=== PATIENT | female | born 1940 | race Caucasian/White ===

== ENCOUNTER → 2017-07-13 09:42 | Outpatient (CLI) | payer MEDICARE, MEDICAID, SELFPAY ==
[2017-07-13 11:09] LABS: Hematocrit 33.5 % (37-47); Hemoglobin 10.8 g/dl (12.0-15.0); Mean Corp Hgb Conc 32.2 g/gl (32-36); Mean Corpuscular Hgb 29.5 pg (27.0-32.0); Mean Corpuscular Volume 91.5 fL (81-99); Mean Platelet Vol. 9.9 fl (6.2-12.0); Platelet Count 200 K/mm3 (150-450); RBC Distribution Width CV 15.1 % (11.6-14.6); RBC Distribution Width SD 49.2 fl (35.1-43.9); Red Blood Count 3.66 M/mm3 (4.2-5.4); White Blood Count 6.9 K/mm3 (4.4-11.0)
[2017-07-13 11:12] LABS: Scan Indicated on CBC? Y/N NO
[2017-07-13 11:18] LABS: Color, Urine Yellow (Yellow); Glucose, Dipstick Normal (Normal); Ketone-Dipstick Negative (Negative); Leukocyte Esterase-Dipstick 500 /ul (Negative); Nitrite-Dipstick Positive (Negative); Occult Blood-Urine 10 /ul (Negative); Protein-Dipstick 15 mg/dl (Negative); Urine Bilirubin Dipstick Negative (Negative); Urine Clarity Sl. Cloudy (Clear); Urine Urobilinogen Normal (Normal)
[2017-07-13 11:27] LABS: Microalbumin,Random Urine 30.6 mg/L (NO RANGE EST.); Microalbumin:Creatinine Ratio 30.9 mg/g CRE (<30 mg/g CRE); Protein, Urine (Random) 17.9 mg/dL (<11.9); Protein:Creat Ratio 181 mg/g CRE (0-200)
[2017-07-13 11:48] LABS: PTHIN 66.7 pg/mL (18.4-80.1); Vitamin D,25 Hydroxy 32.3 ng/mL (29.95-100.01)
[2017-07-13 11:58] LABS: Albumin, Serum 3.2 g/dL (3.2-5.0); BUN 24 mg/dL (7-18); BUN/Creat Ratio 18.2 RATIO (10-20); Calcium,Total 8.7 mg/dL (8.5-10.1); Chloride 107 mmol/L (98-107); Creatinine, Serum 1.32 mg/dL (0.55-1.02); EST Glomerular Filtration Rate 42 mL/min (>60); Est Glom Filt Rate - Afr Amer 50 mL/min (>60); Ferritin 146 ng/mL (8-252); Glucose 90 mg/dL (74-106); Iron 36 ug/dL (50-170); Iron Binding Capacity,Total 235 ug/dL (250-450); Phosphorus 3.2 mg/dL (2.5-4.9); Sodium Level 139 mmol/L (136-145)
== END ==
PROVIDERS: Family Provider Internal Medicine; PCP Internal Medicine; Visit Provider Internal Medicine Nephrology
DX: N18.3 Chronic kidney disease, stage 3 (moderate) (principal); D64.9 Anemia, unspecified; E21.0 Primary hyperparathyroidism
CPT/HCPCS: 80069; 81002; 82043; 82306; 82570; 82728; 83540; 83550; 83970; 84156; 85027

== ENCOUNTER → 2020-03-15 09:33 | Outpatient (CLI) | payer MEDICARE, MEDICAID, SELFPAY ==
--- NOTE | 2020-03-15 09:50 | RAD_ITS ---
STUDY: AIR-CONTRAST UPPER GI SERIES. REASON FOR EXAM: Female, 79 years old. WEIGHT LOSS, EARLY SATIETY, GERD -- 55 FLUORO SEC, 36.94mGy, 25 FLUORO IMAGES FLUOROSCOPY TIME (if supplied): ( 55 seconds. ) minutes/seconds. 25 fluoroscopic images. TECHNIQUE: The patient ingested barium. Multiple images of esophagus, stomach and duodenum were obtained. COMPARISON: None. FINDINGS: Weblike narrowing at the gastroesophageal junction. No evidence of gastroesophageal reflux. The remainder of the stomach and duodenum are unremarkable. 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 Correlation with endoscopy is recommended for further evaluation. Electronically Signed: Sloan Padilla, at 13:35 EST , Service support ,
== END ==
PROVIDERS: PCP Internal Medicine; Referring Provider Nurse Practitioner Adult Health; Visit Provider Nurse Practitioner Adult Health
DX: R63.4 Abnormal weight loss (principal); R68.81 Early satiety; K21.00 Gastro-esophageal reflux disease with esophagitis, without bleeding
CPT/HCPCS: 74246

== ENCOUNTER 2023-02-24 16:04 | Observation (INO) | payer MEDICARE, MEDICAID, SELFPAY ==
[2023-02-24 16:05] VITALS: BP 129/79; PULSE 70; RESP 16; TEMP 36.1; O2SAT 100; BMI 24.9
--- NOTE | 2023-02-24 16:20 | EDS_ITS ---
HPI History of Present Illness Chief Complaint: Syncope Informant: patient Onset/Context/Timing Onset: Today Context: Sudden Onset Timing: Intermittent Quality: Weakness, loss of consciousness Location: Generalized Worsened by: Nothing Relieved by: Nothing Narrative Narrative: Patient presents with a syncopal episode that occurred today. Patient states she was walking in the kitchen when she passed out. Patient remembers walking. Patient remembers waking up on the floor. Patient does not know how long she was out for. Patient admits to some nausea and vomiting. Patient denies any chest pain or shortness of breath. Patient denies any palpitations. Patient denies any recent fevers or chills. Patient states nothing made her symptoms better nothing made them worse. [facility] Medical History (Updated 02/24/23 @ 19:[address] Byron Benton DO) Hypertension Allergy/AdvReac Type Severity Reaction Status Date / Time No Known Allergies Allergy Verified 02/24/23 16:05 Surgical History (Updated 02/24/23 @ 16:[address] Byron Benton DO) Hx of cataract surgery Social History Smoking Status: Former smoker ROS ROS ED Constitutional Constitutional ED: Denies chills or fever(s) Eyes Eyes: Denies blurry vision or change in vision ENT ENT ED: Denies rhinorrhea or sore throat Cardiovascular Cardiovascular: Denies chest pain or palpitations Respiratory/Chest Respiratory/Chest: Denies cough or dyspnea Gastrointestinal Gastrointestinal: Reports nausea and vomiting Genitourinary Genitourinary ED: Denies dysuria or hematuria Musculoskeletal Musculoskeletal: Denies back pain or neck pain Integumentary Denies abscess or rash Neurologic Neurologic: Denies headache(s) or weakness Allergic/Immunologic Allergic/Immunologic ED: Denies mouth swelling or urticaria EXAM Physical Exam Const Vital Signs: 02/24/23 16:05 02/24/23 16:05 Temperature 97 F L Temperature Source Temporal Pulse Rate 70 Respiratory Rate 16 Respiratory Effort Normal Respiratory Pattern Normal Blood Pressure 129/79 H Blood Pressure Mean 95 Pulse Ox 100 Oxygen Delivery Method Room Air Positive well nourished and well developed General Appearance ED: well developed and NAD HEENT Reports moist mucous membranes Neck supple and no JVD Chest Wall inspection of chest normal and palpation of chest normal Resp normal respiratory effort and clear to auscultation bilaterally Cardio regular rate and regular rhythm GI non-tender and non-distended Palpation: soft Extremity normal to inspection General Extremety ED: Negative for edema or tenderness General Extremity: Negative for edema Neuro oriented x3, CN's II-XII intact bilaterally and no sensory deficits noted Sensorium / Orientation: alert Motor Exam: strength 5/5 throughout Psych mental status grossly normal MDM MDM MDM Narrative Medical decision making narrative: Differential diagnosis includes cardiac dysrhythmia, cardiac ischemia, stroke, intracranial bleeding, electrolyte abnormality, pulmonary embolism, and anemia. CT scan of the brain will be obtained to assess for intracranial bleeding. EKG will be obtained to assess for cardiac dysrhythmia and cardiac ischemia. Chest x-ray will be obtained to assess for pneumonia and pneumothorax. CBC will be obtained to assess for leukocytosis and anemia. Basic metabolic profile will be obtained to assess for electrolyte abnormality and renal function. High- sensitivity troponin will be obtained to assess for cardiac ischemia. 2-hour repeat high-sensitivity troponin will be obtained to assess for ongoing cardiac ischemia. D-dimer will be obtained to assess for pulmonary embolism. Lab Data Attestation: I reviewed the patient's lab results. Lab results narrative: CBC was reviewed. There is a mild anemia with a hemoglobin of 11.4 hematocrit 34.2. Platelets were normal. Basic metabolic profile was reviewed. BUN was 40 and creatinine was 1.98. These were increased from previous results. High- sensitivity troponin was reviewed and was normal at 7. D-dimer was reviewed and was normal at less than 0.27. Urinalysis was reviewed. Leukocyte esterase was 100 with 5-10 white blood cells. There is no bacteria noted. 2-hour repeat high-sensitivity troponin was reviewed and was normal at 10. Labs: Laboratory Results - last 24 hr 02/24/23 02/24/23 02/24/23 16:42 18:40 18:52 WBC 9.0 RBC 3.67 L Hgb 11.4 L Hct 34.2 L MCV 93.2 MCH 31.1 MCHC 33.3 RDW Std Deviation 48.5 H RDW Coeff of Andreina 14.3 Plt Count 221 MPV 9.3 Immature Gran % (Auto) 0.600 Neut % (Auto) 55.6 Lymph % (Auto) 35.2 [place] % (Auto) 6.3 Eos % (Auto) 2.0 Baso % (Auto) 0.3 Absolute Neuts (auto) 5.0 Absolute Lymphs (auto) 3.15 Nucleated RBC % 0 D-Dimer Quant (PE/DVT) < 0.27 L Sodium 139 Potassium 3.8 Chloride 108 H Carbon Dioxide 26.0 Anion Gap 5 BUN 40 H Creatinine 1.98 H Estim Creat Clear Calc 17.33 Est GFR (MDRD) Af Amer 31 L Est GFR (MDRD) Non-Af 26 L BUN/Creatinine Ratio 20.2 H Glucose 153 H Calcium 9.9 Troponin I High Sens 7 10 Urine Color Yellow Urine Clarity Sl. Cloudy Urine pH 6.5 Ur Specific [place] 1.010 Urine Protein Negative Urine Glucose (UA) Normal Urine Ketones Negative Urine Occult Blood Negative Urine Nitrite Negative Urine Bilirubin Negative Urine Urobilinogen Normal Ur Leukocyte Esterase 100 H Urine RBC 0 SEEN Urine WBC 5-10 SEEN Ur Squamous Epith Cells 0-5 SEEN Amorphous Sediment 1+ URATE Urine Bacteria 0 SEEN Urine Mucus 0 SEEN Radiography Diagnostic Testing: Clinical Impression(s) from Imaging Studies Brain CT 02/24/23 16:29 IMPRESSION: Mild atrophy and periventricular white matter ischemic change. No acute intracranial hemorrhage Electronically Signed: Kwesi Kc MD at 17:37 EST , Chest X-Ray 02/24/23 16:45 IMPRESSION: No acute cardiopulmonary pathology Electronically Signed: Kwesi Kc MD at 17:03 EST , CT scan of the brain was obtained. There is no acute intracranial abnormality. There are chronic changes noted. This was interpreted by the radiologist and was also independently reviewed by myself. Portable 1 view chest x-ray was obtained. On my independent interpretation, lung argueta are clear. There is normal cardiac silhouette. Bony thorax is normal. There is no acute process noted. Radiologist also interpreted the x- ray and agrees. EKG Initial EKG: Attestation: I personally reviewed and interpreted this EKG as follows: Interpretation: Sinus Rhythm (64) and No Acute Injury Pattern Comments: EKG was obtained. On my independent interpretation, it showed a normal sinus rhythm with occasional PVC with a rate of 64. MN interval, QRS interval, and QTc intervals were all normal. [place] was normal. There are no acute ST or T wave changes. Prior EKG tracings: not available for review Prior: No Prior Treatment and Re-Evaluation :: Patient was given IV fluids. Patient was advised of her findings. I will discuss case with the hospitalist for admission for syncope workup. Patient and family understand and are agreeable with the plan. All questions were answered. Discharge Plan Triage Chief Complaint: Syncope ED Provider: Byron Benton Dx/Rx/DC Orders Clinical Impression: Syncope and collapse, Acute kidney injury superimposed on chronic kidney disease Primary Care Provider: Aspen Boland Referrals: Aspen Boland MD [Primary Care Provider] - Disposition Disposition: Acute Care [facility]
--- NOTE | 2023-02-24 16:29 | EKG12_ITS ---
Test Reason : Blood Pressure : / mmHG Vent. Rate : 064 BPM Atrial Rate : 064 BPM P-R Int : 134 ms QRS Dur : 082 ms QT Int : 408 ms P-R-T Axes : 052 053 052 degrees QTc Int : 420 ms Sinus rhythm with occasional Premature ventricular complexes Otherwise normal ECG Confirmed by MARY ELLEN BARRERA, ANTONELLA ([id number]), clinical editor JOSE MIGUEL VEGA ([id number]) on 02/26/2023 1:19:20 PM Referred By: Alba Confirmed By:ANTONELLA HYDE MD
--- NOTE | 2023-02-24 16:29 | CT_ITS ---
STUDY: CT BRAIN WITHOUT CONTRAST REASON FOR EXAM: Female, 82 years old. Head injury RADIATION DOSAGE (If Supplied By Facility): CTDIvol = ( 44.99 ) mGy, DLP = ( 762.36 ) mGycm TECHNIQUE: Transaxial CT imaging of the brain was performed without administration of intravenous contrast material. Individualized dose optimization techniques were used for this CT. COMPARISON: No relevant priors. FINDINGS: Normal soft tissue structures. Normal calvarium. Calcific plaquing of the cavernous carotid Mild atrophy and periventricular white matter ischemic changes. Normal basal ganglia and thalami. Normal brainstem. Normal cerebellum. There is no intracranial hemorrhage. There are no findings of an acute ischemic infarction. Normal visualized paranasal sinuses. Postsurgical changes of the orbits CT/Brain/Head without Contrast IMPRESSION: Mild atrophy and periventricular white matter ischemic change. No acute intracranial hemorrhage Electronically Signed: Kwesi Kc MD at 17:37 EST ,
--- NOTE | 2023-02-24 16:44 | NURSING ---
NO OLD EKGS
--- NOTE | 2023-02-24 16:45 | RAD_ITS ---
STUDY: X-RAY CHEST REASON FOR EXAM: Female, 82 years old. Syncope TECHNIQUE: AP portable COMPARISON: None. FINDINGS: The lungs are clear and expanded. There is no demonstrated pleural abnormality. Normal size heart. Normal mediastinum and zachary. Normal visualized pulmonary arteries. Normal visualized aortic arch and descending thoracic aorta. Dorsal spine demonstrates scoliosis and degenerative change Normal visualized ribs, clavicles. There are degenerative changes of both shoulders and findings suggestive of old trauma on the right and severe arthritic changes on the left There is no demonstrated abnormality of the visualized soft tissue structures of the upper abdomen. RAD/Chest 1 View (Portable) IMPRESSION: No acute cardiopulmonary pathology Electronically Signed: Kwesi Kc MD at 17:03 EST ,
[2023-02-24 16:51] LABS: Absolute Lymphocyte Count 3.15 X10^3/uL (0.83-4.51); Basophil# 0.03 X10^3/uL; Basophil% 0.3 % (0-1); Eosinophil# 0.18 X10^3/uL; Hematocrit 34.2 % (37-47); Hemoglobin 11.4 g/dL (12.0-15.0); Lymphocyte # 3.15 X10^3/ul (0.83-4.51); Lymphocyte % 35.2 % (19-41); Mean Corp Hgb Conc 33.3 g/dL (32-36); Mean Corpuscular Hgb 31.1 pg (27.0-32.0); Mean Corpuscular Volume 93.2 fL (81-99); Mean Platelet Vol. 9.3 fl (6.2-12.0); Monocyte# 0.56 X10^3/uL; Monocyte% 6.3 % (0-10); NRBC Flagged by Analyzer 0 % (0-5); Neutrophil # 4.98 X10^3/uL (2.7-7.7); Neutrophil % 55.6 % (47-70); Platelet Count 221 K/mm3 (150-450); RBC Distribution Width CV 14.3 % (11.6-14.6); RBC Distribution Width SD 48.5 fl (35.1-43.9); Red Blood Count 3.67 M/mm3 (4.2-5.4)
[2023-02-24 17:07] LABS: D-Dimer Quantitative (DVT/PE) < 0.27 FEU/ug/m (0.27-0.49)
[2023-02-24 17:15] LABS: Anion Gap 5 (5-15); BUN 40 mg/dL (7-18); BUN/Creat Ratio 20.2 RATIO (10-20); Calcium,Total 9.9 mg/dL (8.5-10.1); Chloride 108 mmol/L (98-107); Creatinine, Serum 1.98 mg/dL (0.55-1.02); EST Glomerular Filtration Rate 26 mL/min (>60); Est Glom Filt Rate - Afr Amer 31 mL/min (>60); Estimated Creatinine Clearance 17.33 ml/min; Glucose 153 mg/dL (74-106); Potassium 3.8 mmol/L (3.5-5.1); Sodium Level 139 mmol/L (136-145); Troponin-I HS (w/2H Reflex) 7 pg/mL (3.0-54.0)
[2023-02-24] MEDS: 0.9% Normal Saline (1000mL) 1,000 ML 1000 ML IV (17:34)
[2023-02-24 18:45] LABS: Reflex Troponin-HS? (from REC) Y
[2023-02-24 18:53] LABS: Bacteria 0 SEEN /hpf (None Seen); Mucous, Urine 0 SEEN /hpf (<or=2+); Red Blood Cells-Urine 0 SEEN /hpf (0-5)
[2023-02-24 18:56] LABS: Color, Urine Yellow (Yellow); Glucose, Dipstick Normal (Normal); Ketone-Dipstick Negative (Negative); Leukocyte Esterase-Dipstick 100 /ul (Negative); Nitrite-Dipstick Negative (Negative); Occult Blood-Urine Negative /ul (Negative); Protein-Dipstick Negative (Negative); Urine Bilirubin Dipstick Negative (Negative); Urine Clarity Sl. Cloudy (Clear); Urine Urobilinogen Normal (Normal); Urine pH 6.5 (5.0 - 8.0)
[2023-02-24 19:03] LABS: Amorphous Sediment 1+ URATE; Squamous Epithelial Cells - UA 0-5 SEEN /hpf (5-10); White Blood Cells 5-10 SEEN /hpf (0-5)
[2023-02-24 19:19] LABS: Troponin-I HS 10 pg/mL (3.0-54.0)
[2023-02-24 20:09] VITALS: BP 144/75; PULSE 84; RESP 15; O2SAT 99
--- NOTE | 2023-02-24 20:10 | ED.RN ---
Orthostatic vitals not completed by previous shift, pt up to bedside commode and being admitted by Dr. Quiñones.
--- NOTE | 2023-02-24 20:19 | HP.PCM.HOS_ITS ---
HPI - General General Date of Admission: 02/24/23 Date of Service: 02/24/23 Chief Complaint: Syncopal event. HPI Narrative The patient is an 82 y/o F w/ PMHx: Former tobacco use, Chronic Anxiety, CKD stage III unclear subtype, HTN, HLD, GERD, OA, Chronic normocytic anemia who presents to the [facility] ED on 02/24/23 with history of syncopal event occurring on day of presentation noted to have been walking to the kitchen when she suddenly passed out specifically remembering walking and waking up on the floor with unclear downtime with associated nausea and bout of emesis with no chest pain or shortness of breath nor any palpitations nor any recent illnesses preceding this. Patient does state she did feel off and was attempting to sit down when she started to pass out but she cannot describe any specific symptoms to match this sensation. This is never happened previously. Workup in the ED included T97, heart rate 70, BP 129/79, respiratory rate 16, 100% on room air, CBC with WBC 9.0, hemoglobin 11.4, MCV 93.2, platelet 221 without marked shift, D-dimer less than 0.27, BMP with chloride 108, BUN/creatinine 40/1.98, glucose 153, t roponin 7 with repeat delta 10, urinalysis unremarkable with no obvious evidence of severe dehydration or UTI, chest x-ray with no acute cardiopulmonary findings, CT brain with mild atrophy and periventricular white matter ischemic changes with no acute findings, EKG w/ sinus rhythm with no acute evidence of ischemia. In the ED patient ministered normal saline. [facility], [facility] Medical History (Updated 02/24/23 @ 20:[address] Alejandra Quiñones MD) Chronic anemia CKD (chronic kidney disease), stage III Former tobacco use GERD (gastroesophageal reflux disease) HLD (hyperlipidemia) Hypertension Home Medications amlodipine 10 mg tablet mg 02/24/23 [History Last Taken Unknown] diclofenac sodium 1 % topical gel topical 02/24/23 [History Last Taken Unknown] famotidine 20 mg tablet mg 02/24/23 [History Last Taken Unknown] hydrochlorothiazide 12.5 mg capsule mg 02/24/23 [History Last Taken Unknown] losartan 50 mg tablet mg 02/24/23 [History Last Taken Unknown] pantoprazole 20 mg tablet,delayed release mg PO 02/24/23 [History Last Taken Unknown] Allergy/AdvReac Type Severity Reaction Status Date / Time No Known Allergies Allergy Verified 02/24/23 16:05 Family History (Updated 02/24/23 @ 21:[address] Alejandra Quiñones MD) Mother Hypertension CVA (cerebral vascular accident) Father No problems noted. Surgical History (Updated 02/24/23 @ 20:[address] Alejandra uQiñones MD) History of hysterectomy Hx of cataract surgery Social History (Updated 02/24/23 @ 21:[address] Alejandra Quiñones MD) housing: house Smoking Status: Former smoker how long ago did patient quit smoking: Quit 22 years prior, started in her 20s, 1 ppd until quit. alcohol intake: never substance use type: does not use ROS ROS Narrative Admission Review of Systems: CONSTITUTIONAL: No weight loss, fever, chills, + weakness or fatigue. HEENT: Eyes: No visual loss, blurred vision, double vision or yellow sclerae. Ears, Nose, Throat: No hearing loss, sneezing, congestion, runny nose or sore throat. SKIN: No rash or itching, lesions, wounds. CARDIOVASCULAR: + Syncopal event. No chest pain, chest pressure or chest discomfort, palpitations, edema, orthopnea. RESPIRATORY: No shortness of breath, cough or sputum, wheezing, hemoptysis. GASTROINTESTINAL: + Episode nausea, emesis after syncope, resolved currently. No anorexia, diarrhea, abdominal pain, melena, BRBPR. GENITOURINARY: No dysuria, frequency, urgency or retention. NEUROLOGICAL: + Syncopal event. No headache, dizziness, paralysis, ataxia, numbness or tingling in the extremities, focal weakness, change in bowel or bladder control, seizure. MUSCULOSKELETAL: + muscle, back pain, joint pain or stiffness. HEMATOLOGIC:+ anemia, easy bleeding/bruising. LYMPHATICS: No enlarged nodes. No history of splenectomy. PSYCHIATRIC: No history of depression or anxiety. ENDOCRINOLOGIC: No reports of sweating, cold or heat intolerance. No polyuria or polydipsia. ALLERGIES: No history of asthma, hives, eczema or rhinitis. Vital Signs Vital Signs Vital Signs: 02/24/23 16:05 02/24/23 16:05 02/24/23 20:09 Temperature 97 F L Temperature Source Temporal Pulse Rate 70 84 Respiratory Rate 16 15 Respiratory Effort Normal Respiratory Pattern Normal Blood Pressure 129/79 H 144/75 H Blood Pressure Mean 95 98 Pulse Ox 100 99 Oxygen Delivery Method Room Air Room Air Weight Weight: 136 lb 3.931 oz Body Mass Index (BMI) 24.9 Physical Exam Narrative Physical Examination: General: Awake, alert, oriented x 3 and cooperative, seated upright in the ED bed in no apparent distress. Skin: Normal color, normal turgor, no icterus, no cyanosis. HEENT: AT/NC, EOMI, PERRLA, mildly dry MM, no carotid bruits or JVD noted. Lungs: Diminished, > greater bases, appropriate effort, no rales, ronchi or wheezing. Heart: Regular rate and rhythm; no gallop, rub audible. Abdomen: Soft, NTTP, ND, mildly hyperactive BS, no HSM. Extremities: No cyanosis, clubbing, or edema. Neurological: Patient awake, alert, oriented as noted, cognitive function baseline intact; pupils equally reactive to light and accommodation, cranial nerves II-XII grossly normal, moving all 4 extremities, no focal deficits, strength improved, moderately globally decreased. Psychiatric: Affect appears fatigued otherwise normal, no acute evidence of depr essive or anxiety feelings. Results Lab / Micro Data 02/24/23 16:42 02/24/23 16:42 Labs: Laboratory Results - last 24 hr 02/24/23 16:42: WBC 9.0, RBC 3.67 L, Hgb 11.4 L, Hct 34.2 L, MCV 93.2, MCH 31.1, MCHC 33.3, RDW Std Deviation 48.5 H, RDW Coeff of Andreina 14.3, Plt Count 221, MPV 9.3, Immature Gran % (Auto) 0.600, Neut % (Auto) 55.6, Lymph % (Auto) 35.2, [place] % (Auto) 6.3, Eos % (Auto) 2.0, Baso % (Auto) 0.3, Absolute Neuts (auto) 5.0, Absolute Lymphs (auto) 3.15, Nucleated RBC % 0, D-Dimer Quant (PE/DVT) < 0.27 L, Sodium 139, Potassium 3.8, Chloride 108 H, Carbon Dioxide 26.0, Anion Gap 5, BUN 40 H, Creatinine 1.98 H, Estim Creat Clear Calc 17.33, Est GFR (MDRD) Af Amer 31 L, Est GFR (MDRD) Non-Af 26 L, BUN/Creatinine Ratio 20.2 H, Glucose 153 H, Calcium 9.9, Troponin I High Sens 7 02/24/23 18:40: Urine Color Yellow, Urine Clarity Sl. Cloudy, Urine pH 6.5, Ur Specific [place] 1.010, Urine Protein Negative, Urine Glucose (UA) Normal, Urine Ketones Negative, Urine Occult Blood Negative, Urine Nitrite Negative, Urine Bilirubin Negative, Urine Urobilinogen Normal, Ur Leukocyte Esterase 100 H, Urine RBC 0 SEEN, Urine WBC 5-10 SEEN, Ur Squamous Epith Cells 0-5 SEEN, Amorphous Sediment 1+ URATE, Urine Bacteria 0 SEEN, Urine Mucus 0 SEEN 02/24/23 18:52: Troponin I High Sens 10 Imagaing Radiology Impression Brain CT 02/24/23 16:29 IMPRESSION: Mild atrophy and periventricular white matter ischemic change. No acute intracranial hemorrhage Electronically Signed: Kwesi Kc MD at 17:37 EST , Chest X-Ray 02/24/23 16:45 IMPRESSION: No acute cardiopulmonary pathology Electronically Signed: Kwesi Kc MD at 17:03 EST , Assessment & Plan Assessment/Plan (1) Syncope and collapse: PLAN: Plan The patient is an 82 y/o F w/ PMHx: Former tobacco use, Chronic Anxiety, CKD stage III unclear subtype, HTN, HLD, GERD, OA, Chronic normocytic anemia who presents to the [facility] ED on 02/24/23 with history of syncopal event occurring on day of presentation noted to have been walking to the kitchen when she suddenly passed out specifically remembering walking and waking up on the floor with unclear downtime with associated nausea and bout of emesis with no chest pain or shortness of breath nor any palpitations nor any recent illnesses preceding this. #1. Syncopal Event: Unclear etiology, EKG in ED w/ sinus rhythm without evidence of acute ischemia, CXR w/ no acute cardiopulmonary findings, CT head with no acute intracranial findings, initial trop normal as well as repeat del ta. Will admit to PCU, place on a monitored bed to assure no acute myocardial infarction with serial cardiac enzymes and EKGs. Will maintain on fall precautions, obtain admission orthostatic and AM orthostatic VS and increase hydration if appropriate. Given KIEL will continue to hydrate. Will obtain ECHO. PT/OT consultation to ascertain stability and discharge needs. Procalcitonin requested. #2. Acute Renal Insufficency on Chronic Kidney Disease Stage III, unclear subtype: Admission BUN/Cr 40/1.98, baseline renal function primarily 1.3-1.4, repeat BMP in AM. #3. Chronic normocytic anemia: Admission hemoglobin 11.4, MCV 93.2, baseline hemoglobin prior 10-11, stable, continue to trend. #4. Hypertension: Continue home regimen including amlodipine, holding hydrochlorothiazide and losartan given KIEL, PRN hydralazine. #5. Hyperlipidemia: Not on regimen, defer to outpatient. #6. Chronic Anxiety: Patient per previous records in the past had been on lorazepam, currently not listed on any medication, encourage continued outpatient follow-up and therapy if appropriate. #7. Former tobacco use: Encourage continued tobacco cessation. #8. GERD: We will continue patient on PPI. #9. DVT prophylaxis: Heparin. #10. CODE status: Patient HCPOA and LW are not in place but patient is i nterested in setting up. She notes she would like her daughter Ashutosh David to be her decision maker if she was unable. Discussed CODE status at length including difference between FULL code, DNR-CCA and DNR-CC status. Following discussions about the differences in these status, requested eventually Full Code but notes intention to futher discussion with family and will notify staff if decision to change. Advanced Care Planning Face to Face Time: 16 minutes. Charges/Coding Visit Charges Inpatient E&M: 30028 Init Hosp L2 Procedures Hospitalists Procedures: 05514 Advncd Care Plan 30 Min
[2023-02-24 20:51] VITALS: BP 137/78; PULSE 78; RESP 14; TEMP 36.1; O2SAT 99
[2023-02-24 21:30] VITALS: BP 119/64; PULSE 68; RESP 18; TEMP 36.6; O2SAT 99
[2023-02-24 21:32] VITALS: BP 119/64; BP 134/64; BP 135/62; PULSE 70; PULSE 75; PULSE 88
--- NOTE | 2023-02-24 21:32 | ECHOCS_ITS ---
Reason For Study: Syncpe Procedure This was a 2D Doppler, Color Flow transthoracic echocardiogram. Contrast injection was performed. Exam performed in department. Left Ventricle Normal LV size. The estimated ejection fraction is 65 %. Valsalva LV gradient 22 mmHg. Resting LV gradient 13 mmHg. Stage 1 diastolic dysfunction. No regional wall motion abnormalities noted. Right Ventricle Normal RV size. Normal systolic function. Atria The left and right atria are normal. Hypermobile atrial septum. Bubble contrast study negative for right to left interatrial shunt. Mitral Valve Mild mitral annular calcification. Mild (1+) mitral valve insufficiency. Tricuspid Valve Normal tricuspid valve. Mild (1+) tricuspid valve insufficiency. Right ventricular systolic pressure estimated to be 39 mmHg. Aortic Valve Trisinus/trileaflet aortic valve. Mild focal aortic valve calcification. Aortic sclerosis, no stenosis. Pulmonic Valve The pulmonic valve is not well visualized. Great Vessels Normal aortic root. Pericardium/Pleural No pericardial effusion. Medication Diluted definity 1.5ml given slow IV push to enhance endocardial definition. Performed a rapid injection of agitated mix of 9 cc saline and 1cc air to assess for atrial septal defect. MMode/2D Measurements & Calculations LVIDd: 2.9 cm IVSd: 0.70 cm LA dimension: 3.5 cm LVIDs: 2.3 cm LVPWd: 0.63 cm RVDd: 3.6 cm FS: 22.3 % LAV(MOD-bp): 53.8 ml LVAd ap4: 27.0 cm2 SV(MOD-sp4): 50.8 ml LAV(MOD-bp) Indexed: 33.4 ml/m2 LVLd ap4: 7.6 cm LAV(MOD-sp2): 51.1 ml EDV(MOD-sp4): 77.0 ml LAV(MOD-sp4): 51.5 ml EDV(sp4-el): 81.9 ml LVAs ap4: 12.9 cm2 LVLs ap4: 5.3 cm ESV(MOD-sp4): 26.2 ml ESV(sp4-el): 26.7 ml EF(MOD-sp4): 66.0 % EF(sp4-el): 67.4 % SV(sp4-el): 55.2 ml LA A4 area: 18.7 cm2 RA A4 area: 13.0 cm2 TAPSE: 2.2 cm Time Measurements MV dec time: 0.25 sec Doppler Measurements & Calculations MV E max delon: 92.3 cm/sec Lat Peak E' Delon: 9.5 cm/sec Med Peak E' Delon: 7.3 cm/sec MV A max delon: 112.8 cm/sec E/E' lat: 9.8 E/E' med: 12.6 MV E/A: 0.82 MV V2 max: 122.4 cm/sec MV P1/2t max delon: 102.0 cm/sec Ao V2 max: 169.1 cm/sec MV max P.0 mmHg MV P1/2t: 82.6 msec Ao max P.4 mmHg MV V2 mean: 56.3 cm/sec Ao V2 mean: 116.0 cm/sec MV mean P.6 mmHg MV dec slope: 361.6 cm/sec2 Ao mean P.1 mmHg MV V2 VTI: 33.9 cm MVA(P1/2t): 2.7 cm2 Ao V2 VTI: 42.4 cm AV (velocity ratio): 0.80 LV V1 max: 152.4 cm/sec MR max delon: 606.0 cm/sec PA V2 max: 105.2 cm/sec LV V1 max P.3 mmHg MR max P.9 mmHg PA V2 mean: 77.2 cm/sec LV V1 mean P.6 mmHg MR mean delon: 474.3 cm/sec LV V1 mean: 102.4 cm/sec MR mean P.9 mmHg LV V1 VTI: 33.7 cm MR VTI: 208.6 cm TR max delon: 301.0 cm/sec TR max P.3 mmHg ECHO/Echo Complete W/ Contrast Interpretation Summary The estimated ejection fraction is 65 %. Stage 1 diastolic dysfunction. Mild mitral annular calcification. Mild (1+) mitral valve insufficiency. Mild (1+) tricuspid valve insufficiency. Contrast echo used/Definity No prior echocardiogram to compare The study was technically difficult. Contrast injection was performed. Ordering Physician: Alejandra Quiñones Referring Physician: Aspen Boland Performed By: Jaxson Whyte RCS
[2023-02-24 21:35] VITALS: BMI 24.4
[2023-02-24 21:39] LABS: Magnesium 2.6 mg/dL (1.6-2.6)
[2023-02-24 21:49] LABS: Procalcitonin 0.05 ng/mL (0.00-0.09)
[2023-02-24] MEDS: Heparin Injection (Vial) 5,000 UNIT/ML VIAL 5000 UNIT SC (22:24)
[2023-02-24] MEDS: 0.9% Saline Lock 10 ML Syringe IV (22:24)
[2023-02-24] MEDS: 0.9% Normal Saline (1000mL) 1,000 ML 100 ML IV (22:25)
[2023-02-24 23:06] LABS: Troponin-I HS 12 pg/mL (3.0-54.0)
[2023-02-25 03:30] VITALS: BP 139/67; PULSE 75; RESP 18; TEMP 36.6; O2SAT 99
[2023-02-25 03:54] VITALS: BMI 24.4
[2023-02-25 06:41] LABS: Absolute Neutrophil Count 3.9 X10^3/uL (2.0-7.7); Basophil# 0.03 X10^3/uL; Basophil% 0.4 % (0-1); Eosinophil# 0.15 X10^3/uL; Hematocrit 29.7 % (37-47); Hemoglobin 9.8 g/dL (12.0-15.0); Lymphocyte % 36.5 % (19-41); Mean Corpuscular Hgb 30.2 pg (27.0-32.0); Mean Corpuscular Volume 91.7 fL (81-99); Mean Platelet Vol. 9.2 fl (6.2-12.0); Monocyte% 8.1 % (0-10); NRBC Flagged by Analyzer 0 % (0-5); Neutrophil # 3.89 X10^3/uL (2.7-7.7); Neutrophil % 52.6 % (47-70); Platelet Count 196 K/mm3 (150-450); RBC Distribution Width CV 14.2 % (11.6-14.6); RBC Distribution Width SD 47.9 fl (35.1-43.9); Red Blood Count 3.24 M/mm3 (4.2-5.4); White Blood Count 7.4 K/mm3 (4.4-11.0)
[2023-02-25 07:22] LABS: ALB/GLOB Ratio 0.8 RATIO (0.9-2.4); AST(SGOT) 16 U/L (15-37); Alanine Aminotransfer ALT/SGPT 14 U/L (13-56); Albumin, Serum 2.8 g/dL (3.2-5.0); Alkaline Phosphatase 71 U/L (45-117); Anion Gap 3 (5-15); BUN 28 mg/dL (7-18); BUN/Creat Ratio 20.7 RATIO (10-20); Calcium,Total 9.1 mg/dL (8.5-10.1); Chloride 113 mmol/L (98-107); Creatinine, Serum 1.35 mg/dL (0.55-1.02); EST Glomerular Filtration Rate 40 mL/min (>60); Est Glom Filt Rate - Afr Amer 48 mL/min (>60); Estimated Creatinine Clearance 25.41 ml/min; Globulin 3.4 g/dL (2.2-4.2); Glucose 95 mg/dL (74-106); Potassium 3.9 mmol/L (3.5-5.1); Protein, Total 6.2 g/dL (6.4-8.2); Sodium Level 142 mmol/L (136-145)
[2023-02-25 08:04] VITALS: O2SAT 97
[2023-02-25 08:52] VITALS: BP 121/63; PULSE 66; RESP 16; TEMP 36.9; O2SAT 99
[2023-02-25] MEDS: Pantoprazole Sodium 40 MG Tablet PO (08:55)
[2023-02-25] MEDS: Heparin Injection (Vial) 5,000 UNIT/ML VIAL 5000 UNIT SC ×2 (08:55→20:39)
--- NOTE | 2023-02-25 13:42 | PN.HOSP_ITS ---
Reason for Visit Reason for Visit: Syncope Subjective Subjective Mrs. Isaacs is an 82-year-old female who presented to emergency department at [facility] on 02/24/2023 due to a syncopal event. Patient reported that on the day of presentation she was walking to the kitchen when she suddenly passed out. She specifically remembers walking to the kitchen and waking up on the floor with an unclear amount of downtime. It was associated with some nausea and a bout of emesis with no chest pain or shortness of breath. She denies any palpitations or recent illnesses. She did indicate that prior to passing out she felt woozy and was attempting to sit down when she passed out but had difficulty describing the event beyond this. She has never had this happen previously. Vital signs on presentation showed a temperature of 97, heart rate 70, blood pressure 129/79, respiratory rate was 16 and oxygen saturations are 100% on room air. CBC was unremarkable. D-dimer was negative. BMP showed an elevated BUN and creatinine at 40 and 1.98, elevated glucose at 153 and a troponin of 7 with a repeat delta troponin of 10. Her UA was unremarkable. Chest x-ray and EKG was unremarkable for acute findings. CT was unremarkable for any acute findings. She was given IV fluids and request for admission was made. Further questioning today she reports that she did have some left arm pain prior to her event and the nausea was following. She denies shortness of breath or diaphoresis but did indicate she had not been feeling great all day. Objective Data Objective Data Vital Signs: Vital Signs Temp Pulse Resp BP Pulse Ox O2 Del Method 98.4 F 66 16 121/63 H 99 Room Air 02/25/23 08:52 02/25/23 08:52 02/25/23 08:52 02/25/23 08:52 02/25/23 08:52 02/25/23 08:52 Oxygen Delivery Method Room Air Weight: 60.6 kg Body Mass Index (BMI) 24.4 Intake & Output: Intake and Output for Last 24 Hours 02/23/23 02/24/23 02/25/23 23:59 23:59 23:59 Intake Total 1000 / 1150 1338.33 / 1338.33 Balance 1000 / 1150 1338.33 / 1338.33 Lab / Micro Data 02/25/23 06:25 02/25/23 06:25 Labs: Laboratory Results - last 24 hr 02/24/23 16:42: WBC 9.0, RBC 3.67 L, Hgb 11.4 L, Hct 34.2 L, MCV 93.2, MCH 31.1, MCHC 33.3, RDW Std Deviation 48.5 H, RDW Coeff of Andreina 14.3, Plt Count 221, MPV 9.3, Immature Gran % (Auto) 0.600, Neut % (Auto) 55.6, Lymph % (Auto) 35.2, [place] % (Auto) 6.3, Eos % (Auto) 2.0, Baso % (Auto) 0.3, Absolute Neuts (auto) 5.0, Absolute Lymphs (auto) 3.15, Nucleated RBC % 0, D-Dimer Quant (PE/DVT) < 0.27 L, Sodium 139, Potassium 3.8, Chloride 108 H, Carbon Dioxide 26.0, Anion Gap 5, BUN 40 H, Creatinine 1.98 H, Estim Creat Clear Calc 17.33, Est GFR (MDRD) Af Amer 31 L, Est GFR (MDRD) Non-Af 26 L, BUN/Creatinine Ratio 20.2 H, Glucose 153 H, Calcium 9.9, Magnesium 2.6, Troponin I High Sens 7 02/24/23 18:40: Urine Color Yellow, Urine Clarity Sl. Cloudy, Urine pH 6.5, Ur Specific [place] 1.010, Urine Protein Negative, Urine Glucose (UA) Normal, Urine Ketones Negative, Urine Occult Blood Negative, Urine Nitrite Negative, Urine Bilirubin Negative, Urine Urobilinogen Normal, Ur Leukocyte Esterase 100 H, Urine RBC 0 SEEN, Urine WBC 5-10 SEEN, Ur Squamous Epith Cells 0-5 SEEN, Amorphous Sediment 1+ URATE, Urine Bacteria 0 SEEN, Urine Mucus 0 SEEN 02/24/23 18:52: Troponin I High Sens 10 02/24/23 20:48: Procalcitonin 0.05 02/24/23 22:31: Troponin I High Sens 12 02/25/23 06:25: WBC 7.4, RBC 3.24 L, Hgb 9.8 L, Hct 29.7 L, MCV 91.7, MCH 30.2, MCHC 33.0, RDW Std Deviation 47.9 H, RDW Coeff of Andreina 14.2, Plt Count 196, MPV 9.2, Immature Gran % (Auto) 0.400, Neut % (Auto) 52.6, Lymph % (Auto) 36.5, [place] % (Auto) 8.1, Eos % (Auto) 2.0, Baso % (Auto) 0.4, Absolute Neuts (auto) 3.9, Absolute Lymphs (auto) 2.70, Nucleated RBC % 0, Sodium 142, Potassium 3.9, Chloride 113 H, Carbon Dioxide 26.0, Anion Gap 3 L, BUN 28 H, Creatinine 1.35 H, Estim Creat Clear Calc 25.41, Est GFR (MDRD) Af Amer 48 L, Est GFR (MDRD) Non-Af 40 L, BUN/Creatinine Ratio 20.7 H, Glucose 95, Calcium 9.1, Total Bilirubin 0.30 , AST 16, ALT 14, Alkaline Phosphatase 71, Total Protein 6.2 L, Albumin 2.8 L, Globulin 3.4, Albumin/Globulin Ratio 0.8 L Radiography Diagnostic Testing: Radiology Impression Brain CT 02/24/23 16:29 IMPRESSION: Mild atrophy and periventricular white matter ischemic change. No acute intracranial hemorrhage Electronically Signed: Kwesi Kc MD at 17:37 EST , Chest X-Ray 02/24/23 16:45 IMPRESSION: No acute cardiopulmonary pathology Electronically Signed: Kwesi Kc MD at 17:03 EST , Physical Exam Const alert, oriented x3, no apparent distress, average body habitus, healthy appearing and well nourished Constitutional Narrative: Elderly, -[place], female, sitting up in a chair talking on the phone to her sister and watching television HEENT head/scalp atraumatic and moist oral mucous membranes HEENT Narrative: Mallampati 2, no thrush Head and Scalp: normocephalic Resp normal respiratory effort, no retractions, no use of accessory muscles and clear to auscultation bilaterally Auscultation: Negative for rales, rhonchi or wheezes Cardio regular rate, regular rhythm, S1 normal heart sound, S2 normal heart sound, no murmurs, no rub, no gallops and no clicks GI normal to inspection, nondistended, normoactive bowel sounds, soft to palpation and non-tender Extremity no clubbing, cyanosis or edema Extremity Narrative: Pedal pulses are 2+ Neuro oriented x3, moves all extremities and no focal motor deficits Speech: speech normal Psych affect normal Psych Narrative: Extremely flat, appears comfortable, eye contact is good, interacts appropriately Assessment & Plan Assessment/Plan (1) Syncope and collapse: (2) Acute kidney injury superimposed on chronic kidney disease: (3) Dehydration: PLAN: Plan Syncope -Etiology is unclear -On further questioning patient did have left sided arm pain down to her elbow prior to the event -Given this history we will add stress test -Give aspirin 81 mg now and daily starting tomorrow -Start atorvastatin and check lipids -EKG and telemetry have been unremarkable -Chest x-ray and D-dimer unremarkable. 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 Chronic normocytic anemia -Baseline appears to be between 10 and 11 -9.8 this morning however she has been receiving fluids -No signs of acute bleeding -Stop IV fluids and repeat lab in a.m. HTN/HPL -Continue home amlodipine -Restart home losartan but will still hold hydrochlorothiazide -As needed hydralazine -Check lipid panel and start atorvastatin for now with above symptoms History of GERD -Continue home famotidine Anxiety -Currently not taking anything for this -Had been on Ativan previously -Outpatient follow-up History of tobacco abuse -Encouraged ongoing cessation DVT prophylaxis -Continue heparin CODE STATUS -Full code Charges/Coding Visit Charges Inpatient E&M: 92375 Subs Hosp L2
[2023-02-25 15:40] VITALS: BP 133/57; PULSE 66; RESP 16; TEMP 36.4; O2SAT 99
[2023-02-25] MEDS: Aspirin 81 MG TAB.CHEW PO (16:56)
[2023-02-25] MEDS: Atorvastatin Calcium 80 MG Tablet PO (20:39)
[2023-02-25 21:40] VITALS: BP 127/62; PULSE 60; RESP 18; TEMP 36.9; O2SAT 98
[2023-02-26 01:41] VITALS: BMI 24.6
[2023-02-26] MEDS: Aspirin 81 MG TAB.CHEW PO (04:25)
[2023-02-26 04:26] VITALS: BP 122/53; PULSE 56; RESP 18; TEMP 36.6; O2SAT 99
[2023-02-26 05:38] LABS: Absolute Lymphocyte Count 4.01 X10^3/uL (0.83-4.51); Absolute Neutrophil Count 2.8 X10^3/uL (2.0-7.7); Basophil# 0.05 X10^3/uL; Basophil% 0.6 % (0-1); Eosinophil# 0.29 X10^3/uL; Eosinophils% 3.7 % (0-5); Hematocrit 31.5 % (37-47); Hemoglobin 10.2 g/dL (12.0-15.0); Lymphocyte # 4.01 X10^3/ul (0.83-4.51); Lymphocyte % 51.1 % (19-41); Mean Corp Hgb Conc 32.4 g/dL (32-36); Mean Corpuscular Hgb 30.3 pg (27.0-32.0); Mean Corpuscular Volume 93.5 fL (81-99); Monocyte# 0.65 X10^3/uL; Monocyte% 8.3 % (0-10); NRBC Flagged by Analyzer 0 % (0-5); Neutrophil # 2.83 X10^3/uL (2.7-7.7); Platelet Count 223 K/mm3 (150-450); RBC Distribution Width CV 14.4 % (11.6-14.6); RBC Distribution Width SD 49.4 fl (35.1-43.9); Red Blood Count 3.37 M/mm3 (4.2-5.4); White Blood Count 7.9 K/mm3 (4.4-11.0)
[2023-02-26 06:09] LABS: ALB/GLOB Ratio 0.9 RATIO (0.9-2.4); AST(SGOT) 22 U/L (15-37); Alanine Aminotransfer ALT/SGPT 15 U/L (13-56); Albumin, Serum 2.8 g/dL (3.2-5.0); Alkaline Phosphatase 71 U/L (45-117); Anion Gap 6 (5-15); BUN 26 mg/dL (7-18); BUN/Creat Ratio 19.4 RATIO (10-20); Calcium,Total 8.8 mg/dL (8.5-10.1); Chloride 111 mmol/L (98-107); Cholesterol 167 mg/dL (200); Creatinine, Serum 1.34 mg/dL (0.55-1.02); EST Glomerular Filtration Rate 40 mL/min (>60); Est Glom Filt Rate - Afr Amer 49 mL/min (>60); Globulin 3.2 g/dL (2.2-4.2); Glucose 82 mg/dL (74-106); High Density Lipoprotein 85 mg/dL; Magnesium 2.2 mg/dL (1.6-2.6); Phosphorus 3.4 mg/dL (2.5-4.9); Potassium 4.3 mmol/L (3.5-5.1); Sodium Level 142 mmol/L (136-145); Thyroid Stim Hormone (TSH) 1.93 uIU/mL (0.358-3.74); Triglycerides 45 mg/dL; Very Low Density Lipoprotein 9 mg/dL (5-40)
[2023-02-26 07:05] VITALS: O2SAT 95
[2023-02-26 07:50] VITALS: BP 141/65; PULSE 58; RESP 16; TEMP 36.3; O2SAT 99
[2023-02-26 07:52] VITALS: O2SAT 99
--- NOTE | 2023-02-26 09:05 | PN.HOSP_ITS ---
Reason for Visit Reason for Visit: Diagnoses Dehydration (02/24/23) Acute kidney failure, unspecified (02/24/23) Chronic kidney disease, unspecified (02/24/23) Syncope and collapse (02/24/23) Objective Data Objective Data Vital Signs: Vital Signs Temp Pulse Resp BP Pulse Ox O2 Del Method 36.3 C L 58 L 16 141/65 H 99 Room Air 02/26/23 07:50 02/26/23 07:50 02/26/23 07:50 02/26/23 07:50 02/26/23 07:52 02/26/23 07:52 Oxygen Delivery Method Room Air Weight: 61.2 kg Body Mass Index (BMI) 24.6 Intake & Output: Intake and Output for Last 24 Hours 02/24/23 02/25/23 02/26/23 23:59 23:59 23:59 Intake Total 1000 / 1150 1658.33 / 1658.33 Balance 1000 / 1150 1658.33 / 1658.33 Lab / Micro Data 02/26/23 04:00 02/26/23 04:00 Labs: Laboratory Results - last 24 hr 02/26/23 04:00: WBC 7.9, RBC 3.37 L, Hgb 10.2 L, Hct 31.5 L, MCV 93.5, MCH 30.3, MCHC 32.4, RDW Std Deviation 49.4 H, RDW Coeff of Andreina 14.4, Plt Count 223, MPV 10.0, Immature Gran % (Auto) 0.300, Neut % (Auto) 36.0 L, Lymph % (Auto) 51.1 H, [place] % (Auto) 8.3, Eos % (Auto) 3.7, Baso % (Auto) 0.6, Absolute Neuts (auto) 2.8, Absolute Lymphs (auto) 4.01, Nucleated RBC % 0, Sodium 142, Potassium 4.3, Chloride 111 H, Carbon Dioxide 25.0, Anion Gap 6, BUN 26 H, Creatinine 1.34 H, Estim Creat Clear Calc 25.60, Est GFR (MDRD) Af Amer 49 L, Est GFR (MDRD) Non-Af 40 L, BUN/Creatinine Ratio 19.4, Glucose 82, Calcium 8.8, Phosphorus 3.4, Ma gnesium 2.2, Total Bilirubin 0.50, AST 22, ALT 15, Alkaline Phosphatase 71, Total Protein 6.0 L, Albumin 2.8 L, Globulin 3.2, Albumin/Globulin Ratio 0.9, Triglycerides 45, Cholesterol 167, LDL Cholesterol 73, VLDL Cholesterol 9, HDL Cholesterol 85, TSH 1.93 Assessment & Plan Assessment/Plan (1) Syncope and collapse: (2) Acute kidney injury superimposed on chronic kidney disease: (3) Dehydration: PLAN: Plan Syncope * Etiology is unclear * On further questioning patient did have left sided arm pain down to her elbow prior to the event * Given this history we will add stress test. Give aspirin 81 mg now and daily starting tomorrow Start atorvastatin and check lipids * EKG and telemetry have been unremarkable. Chest x-ray and D-dimer unremarkable . 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 Was 1.98 on presentation. Appears related to some mild dehydration. Okay to stop IV fluids and continue to monitor with repeat lab in a.m. Chronic conditions: * Chronic normocytic anemia-Baseline appears to be between 10 and 11-9.8 this morning however she has been receiving fluids-No signs of acute bleeding-Stop IV fluids * HTN/HPL-Continue home amlodipine-Restart home losartan but will still hold hydrochlorothiazide-As needed hydralazine-Check lipid panel and start atorvastatin for now with above symptoms * History of GERD-Continue home famotidine * Anxiety-Currently not taking anything for this-Had been on Ativan previously- Outpatient follow-up * History of tobacco abuse-Encouraged ongoing cessation DVT prophylaxis -Continue heparin CODE STATUS -Full code
--- NOTE | 2023-02-26 09:05 | PCM.PN.HOSP ---
Subjective Subjective Feels well. No new events. States that she was feeling well up till this but then felt nauseated and then had the syncopal event. Never had that before. Objective Data Objective Data Vital Signs: Vital Signs Temp Pulse Resp BP Pulse Ox O2 Del Method 36.3 C L 58 L 16 141/65 H 99 Room Air 02/26/23 07:50 02/26/23 07:50 02/26/23 07:50 02/26/23 07:50 02/26/23 07:52 02/26/23 07:52 Oxygen Delivery Method Room Air Weight: 61.2 kg Body Mass Index (BMI) 24.6 Intake & Output: Intake and Output for Last 24 Hours 02/24/23 02/25/23 02/26/23 23:59 23:59 23:59 Intake Total 1000 / 1150 1658.33 / 1658.33 Balance 1000 / 1150 1658.33 / 1658.33 Lab / Micro Data 02/26/23 04:00 02/26/23 04:00 Labs: Laboratory Results - last 24 hr 02/26/23 04:00: WBC 7.9, RBC 3.37 L, Hgb 10.2 L, Hct 31.5 L, MCV 93.5, MCH 30.3, MCHC 32.4, RDW Std Deviation 49.4 H, RDW Coeff of Andreina 14.4, Plt Count 223, MPV 10.0, Immature Gran % (Auto) 0.300, Neut % (Auto) 36.0 L, Lymph % (Auto) 51.1 H, [place] % (Auto) 8.3, Eos % (Auto) 3.7, Baso % (Auto) 0.6, Absolute Neuts (auto) 2.8, Absolute Lymphs (auto) 4.01, Nucleated RBC % 0, Sodium 142, Potassium 4.3, Chloride 111 H, Carbon Dioxide 25.0, Anion Gap 6, BUN 26 H, Creatinine 1.34 H, Estim Creat Clear Calc 25.60, Est GFR (MDRD) Af Amer 49 L, Est GFR (MDRD) Non-Af 40 L, BUN/Creatinine Ratio 19.4, Glucose 82, Calcium 8.8, Phosphorus 3.4, Magnesium 2.2, Total Bilirubin 0.50, AST 22, ALT 15, Alkaline Phosphatase 71, Total Protein 6.0 L, Albumin 2.8 L, Globulin 3.2, Albumin/Globulin Ratio 0.9, Triglycerides 45, Cholesterol 167, LDL Cholesterol 73, VLDL Cholesterol 9, HDL Cholesterol 85, TSH 1.93 Physical Exam Const alert and no apparent distress HEENT head/scalp atraumatic Resp normal respiratory effort, no retractions, no use of accessory muscles and clear to auscultation bilaterally Cardio regular rate, regular rhythm, S1 normal heart sound and S2 normal heart sound GI normal to inspection, nondistended, normoactive bowel sounds, soft to palpation, non-tender and non-distended Extremity normal to inspection Neuro Sensorium / Orientation: awake and alert Psych affect normal Assessment & Plan Assessment/Plan (1) Syncope and collapse: (2) Acute kidney injury superimposed on chronic kidney disease: (3) Dehydration: PLAN: Plan Syncope Suspect vasovagal. Stress test negative. EKG and telemetry have been unremarkable. Chest x-ray and D-dimer unremarkable. Cardiac enzymes unremarkable Echocardiogram is pending Orthostatic vital signs were unremarkable on presentation Carotid ultrasounds have been deemed to be low volume and unexplained syncope therefore will defer at this time TSH WNL KIEL on CKD stage IIIb Resolved Baseline serum creatinine appears to run between 1.3 and 1.5. Was 1.98 on presentation. Appears related to some mild dehydration. Okay to stop IV fluids and continue to monitor with repeat lab in a.m. Chronic conditions: Chronic normocytic anemia-Baseline appears to be between 10 and 11-9.8 this morning however she has been receiving fluids-No signs of acute bleeding-Stop IV fluids HTN/HPL-Continue home amlodipine-Restart home losartan but will still hold hydrochlorothiazide-As needed hydralazine-Check lipid panel and start atorvastatin for now with above symptoms History of GERD-Continue home famotidine Anxiety-Currently not taking anything for this-Had been on Ativan previously-Outpatient follow-up History of tobacco abuse-Encouraged ongoing cessation DVT prophylaxis -Continue heparin CODE STATUS -Full code Charges/Coding Visit Charges Inpatient E&M: 00828 Subs Hosp L2
[2023-02-26 11:23] VITALS: BP 141/64; PULSE 61; RESP 16; TEMP 36.2; O2SAT 100
[2023-02-26] MEDS: 0.9% Saline Lock 10 ML Syringe IV (11:25)
[2023-02-26] MEDS: Pantoprazole Sodium 40 MG Tablet PO (11:25)
--- NOTE | 2023-02-26 12:04 | CASEMGMT ---
Social Work As per admitting explosive ordnance technician, pt does not have LW/POA and declined further information. KRIS Inman
--- NOTE | 2023-02-26 12:20 | CASEMGMT ---
TRICIA HUERTAS: RIZVI form reviewed with pt. Pt denies any questions and signed form. Original placed in pt's chart and copy provided to pt. Brenda Amaral RN CM
--- NOTE | 2023-02-26 14:31 | STRESSREP_ITS ---
Stress Test Report Pharmacological/Lexiscan myocardial perfusion study Indication: 82-year-old female presented with syncopal event Has acute on chronic renal insufficiency with dehydration She was scheduled for evaluation by Lexiscan nuclear stress test. Stress protocol: Resting EKG demonstrates. Normal sinus rhythm. Right bundle branch block. 0.4 mg of regadenoson was infused per usual protocol followed by rapid intravenous saline flush injection continuous EKG monitoring was performed. The maximum heart rate attained was 82 bpm which was 59% of maximum predicted heart . Stress EKG showed[, no significant change from the resting EKG, with maximum heart rate of 82 bpm. Arrhythmia: No arrhythmia demonstrated Symptoms: Patient had no symptoms of chest pain Blood pressure at rest: 112/64 mmHg blood pressure at the end of stress: 112/64 mmHg. Myocardial perfusion protocol. 11.1 mCi ]of Technetium 99m Sestamibi was injected at rest. [ 0.4 mg ]of Regadenoson was infused per usual protocol peak infusion 33.5 mCi ]of Technetium 99m sestamibi was injected. Stress images were obtained stress and rest images were reconstructed and compared in the short axis vertical and horizontal long axis. Gated images were also obtained Perfusion SPECT analysis: Review of the images demonstrate normal uptake of sestamibi at rest, post stress images demonstrate similar uptake of sestamibi to the resting images, homogeneous tracer uptake With no evidence of reversible myocardial ischemia. Gated SPECT analysis: The gated ejection fraction is 94%. Wall motion showed hyperdynamic left ventricle. Conclusion: Negative Lexiscan sestamibi myocardial perfusion study for reversible myocardial ischemia Hyperdynamic left ventricle. Patient has no symptoms to report, in particular no chest pain Jake Grimaldo MD,FACC,[facility]
[2023-02-26 16:20] VITALS: BP 142/64; PULSE 60; RESP 16; TEMP 36.4; O2SAT 100
--- NOTE | 2023-02-26 16:24 | DCINST_ITS ---
Discharge Instructions Diet Discharge Diet: No restrictions Dressing / Incision Call your doctor if you observe: Dizziness and Fainting spells Follow Up Care Test Results: Test results from this visit will be discussed in further detail at your follow- up appointment, if applicable. Discharge Plan Admission Admit Date/Time: 02/24/23 20:28 Primary Reason for Your Visit: Syncope Attending Provider: Byron Loving Primary Care Provider: Aspen Boland Consulting Providers: Navid Arboleda; Kinsey Garcia Instructions Additional Instructions / Restrictions: You had a syncopal episode (fainting). Your workup here was unremarkable though did show that your kidney function was abnormal possibly reflecting some dehydration which may have contributed to the fainting. I have recommended you stop taking your hydrochlorothiazide and losartan for the time being. Please follow-up with your primary care doctor in regards to following up for post hospital follow-up but also to see if some these medications could be resumed at a later point. Please return if you do have further events in the future. Discharge Orders/Prescriptions Prescriptions: Continued pantoprazole 20 mg tablet,delayed release (DR/EC) PO Patient Comments: TAKE 1 TABLET BY MOUTH EVERY DAY famotidine 20 mg tablet 20 mg PO Q12H Patient Comments: TAKE 1 TABLET BY MOUTH TWICE A DAY amlodipine 10 mg tablet 10 mg PO DAILY Patient Comments: TAKE 1 TABLET BY MOUTH EVERY DAY diclofenac sodium 1 % gel 2 g TOPICAL BID PRN Patient Comments: APPLY 2 GRAMS TO AFFECTED AREA TWICE DAILY NEEDED. Discontinued losartan 50 mg tablet 50 mg PO DAILY Patient Comments: TAKE 1 TABLET BY MOUTH EVERY DAY hydrochlorothiazide 12.5 mg capsule 12.5 mg PO DAILY Patient Comments: TAKE 1 CAPSULE BY MOUTH ONCE DAILY Referrals / Follow Up: Aspen Boland MD [Primary Care Provider] - Within 2 Weeks Disposition Disposition (needs filled in before D/C Order can be placed): Home, Self Care
--- NOTE | 2023-02-26 16:40 | CASEMGMT ---
Patient has order to discharge. RN CM in to discuss needs at discharge. Patient denies needs or help at discharge, states daughter will help. RN CM updated patient to follow-up with PCP if she would reconsider needing HHC or additional DME. Patient had no further questions or concerns at this time.
--- NOTE | 2023-02-27 15:41 | DS.PCM_ITS ---
Providers Date of Admission: 02/24/23 Primary Care Physician: Dr. Aspen Boland MD Reason For Visit: SYNCOPE Diagnosis Discharge Diagnosis (1) Syncope and collapse: Status: Acute Code(s): R55 - Syncope and collapse (2) Acute kidney injury superimposed on chronic kidney disease: Status: Chronic Code(s): N17.9 - Acute kidney failure, unspecified; N18.9 - Chronic kidney disease, u nspecified (3) Dehydration: Status: Acute Code(s): E86.0 - Dehydration Plan Syncope * Suspect vasovagal likely get aggravated by dehydration. * Stress test negative. EKG and telemetry have been unremarkable. Chest x-ray and D-dimer unremarkable. * Orthostatic vital signs were unremarkable on presentation * Carotid ultrasounds have been deemed to be low volume and unexplained syncope therefore will defer at this time * TSH WNL * Echocardiogram was unremarkable. KIEL on CKD stage IIIb * Resolved * Baseline serum creatinine appears to run between 1.3 and 1.5. Was 1.98 on presentation. Appears related to some mild dehydration. Okay to stop IV fluids and continue to monitor with repeat lab in a.m. Chronic conditions: * Chronic normocytic anemia-Baseline appears to be between 10 and 11-9.8 this morning however she has been receiving fluids-No signs of acute bleeding-Stop IV fluids * HTN/HPL-Continue home amlodipine-Restart home losartan but will still hold hydrochlorothiazide-As needed hydralazine-Check lipid panel and start atorvastatin for now with above symptoms * History of GERD-Continue home famotidine * Anxiety-Currently not taking anything for this-Had been on Ativan previously- Outpatient follow-up * History of tobacco abuse-Encouraged ongoing cessation DVT prophylaxis -Continue heparin CODE STATUS -Full code Medications at Discharge Home Medications amlodipine 10 mg tablet 10 mg PO DAILY blood pressure 02/24/23 diclofenac sodium 1 % topical gel 2 g topical BID PRN skin health 02/24/23 famotidine 20 mg tablet 20 mg PO Q12H reflux 02/24/23 pantoprazole 20 mg tablet,delayed release mg PO 02/24/23 Weight / BMI Weight Weight: 61.2 kg Body Mass Index (BMI) 24.6 ABG / Lab / Microbiology Data 02/26/23 04:00 02/26/23 04:00 Radiography Diagnostic Testing: Radiology Impression Echocardiogram 02/24/23 21:32 Interpretation Summary The estimated ejection fraction is 65 %. Stage 1 diastolic dysfunction. Mild mitral annular calcification. Mild (1+) mitral valve insufficiency. Mild (1+) tricuspid valve insufficiency. Contrast echo used/Definity No prior echocardiogram to compare The study was technically difficult. Contrast injection was performed. Ordering Physician: Alejandra Quiñones Referring Physician: Aspen Boland Performed By: Jaxson Whyte RCS D/C Instructions Discharge Diet: No restrictions Call your doctor if you observe: Dizziness and Fainting spells Meaningful Use Info Meaningful Use Diagnoses (Choose all that apply): None applicable Discharge Plan Admission Admit Date/Time: 02/24/23 20:28 Primary Reason for Your Visit: Syncope Attending Provider: Byron Loving Primary Care Provider: Aspen Boland Consulting Providers: Navid Arboleda; Kinsey Garcia Instructions Additional Instructions / Restrictions: You had a syncopal episode (fainting). Your workup here was unremarkable though did show that your kidney function was abnormal possibly reflecting some dehydration which may have contributed to the fainting. I have recommended you stop taking your hydrochlorothiazide and losartan for the time being. Please follow-up with your primary care doctor in regards to following up for post hospital follow-up but also to see if some these medications could be resumed at a later point. Please return if you do have further events in the future. Discharge Orders/Prescriptions Prescriptions: Continued pantoprazole 20 mg tablet,delayed release (DR/EC) PO Patient Comments: TAKE 1 TABLET BY MOUTH EVERY DAY famotidine 20 mg tablet 20 mg PO Q12H Patient Comments: TAKE 1 TABLET BY MOUTH TWICE A DAY amlodipine 10 mg tablet 10 mg PO DAILY Patient Comments: TAKE 1 TABLET BY MOUTH EVERY DAY diclofenac sodium 1 % gel 2 g TOPICAL BID PRN Patient Comments: APPLY 2 GRAMS TO AFFECTED AREA TWICE DAILY NEEDED. Discontinued losartan 50 mg tablet 50 mg PO DAILY Patient Comments: TAKE 1 TABLET BY MOUTH EVERY DAY hydrochlorothiazide 12.5 mg capsule 12.5 mg PO DAILY Patient Comments: TAKE 1 CAPSULE BY MOUTH ONCE DAILY Referrals / Follow Up: Aspen Boland MD [Primary Care Provider] - Within 2 Weeks Disposition Disposition (needs filled in before D/C Order can be placed): Home, Self Care Charges/Coding Visit Charges Inpatient E&M: 52512 Disch Hosp
== END 2023-02-26 18:03 | disposition home or self-care (01) ==
LOC: ED 20:41 → PCU 20:53
PROVIDERS: Internal Medicine; Admitting Provider Family Medicine; Emergency Provider Emergency Medicine; PCP Internal Medicine
DX: R55 Syncope and collapse (principal); N17.9 Acute kidney failure, unspecified; I50.1 Left ventricular failure, unspecified; N18.32 Chronic kidney disease, stage 3b; Z87.891 Personal history of nicotine dependence; K21.9 Gastro-esophageal reflux disease without esophagitis; I12.9 Hypertensive chronic kidney disease with stage 1 through stage 4 chronic kidney disease, or unspecified chronic kidney disease; R73.9 Hyperglycemia, unspecified; E78.5 Hyperlipidemia, unspecified; E86.0 Dehydration; D64.9 Anemia, unspecified; R11.2 Nausea with vomiting, unspecified; R53.1 Weakness; I49.3 Ventricular premature depolarization; I08.1 Rheumatic disorders of both mitral and tricuspid valves; Z79.899 Other long term (current) drug therapy; I45.10 Unspecified right bundle-branch block; Z82.49 Family history of ischemic heart disease and other diseases of the circulatory system
CPT/HCPCS: 36415; 70450; 71045; 78452; 80048; 80053; 80061; 81001; 83735; 84100; 84145; 84443; 84484; 85025; 85379; 93005; 93017; 93306; 94668; 96360; 96361; 97162; 97166; 97535; 99221; 99285; A9500; J7030; Q9957; A4216; C8929; G0378; J2785